=== PATIENT | female | born 1965 | race African-American/Black ===

== ENCOUNTER 2021-05-08 16:12 | Emergency (ER) | payer BC, OTHER ==
[2021-05-08 16:32] VITALS: BP 129/85; PULSE 100; TEMP 98.2; BMI 29.4
[2021-05-08] MEDS ORDERED: ASPIRIN 81 MG CHEWABLE TABLETS PO ONE (17:31)
[2021-05-08] MEDS ORDERED: ASPIRIN 81 MG CHEWABLE TABLETS ONE (18:10)
[2021-05-08 19:27] LABS: EOS % 1.8 % (0-4.5); HEMATOCRIT 40.6 % (32.4-45.2); HEMOGLOBIN 14.2 GM/dL (10.7-15.3); LYMPH % 35.9 % (8-40); MCH 28.4 pg (25.7-33.7); MEAN PLT VOLUME 8.5 fl (7.5-11.1); NEUT % 55.3 % (42.8-82.8); PLATELET COUNT 352 10^3/uL (134-434); RBC 5.01 M/mm3 (3.60-5.2); RDW 13.1 % (11.6-15.6); WHITE BLOOD COUNT 9.8 K/mm3 (4.0-10.0)
[2021-05-08 19:47] LABS: CHLORIDE 107 mmol/L (98-107); SODIUM 138 mmol/L (136-145)
[2021-05-08 19:51] LABS: ALBUMIN 3.5 g/dl (3.4-5.0); ANION GAP 8 MMOL/L (8-16); BLOOD UREA NITROGEN 12.7 mg/dL (7-18); CALCIUM 9.3 mg/dL (8.5-10.1); CO2 23 mmol/L (21-32); GLUCOSE,RANDOM 89 mg/dL (74-106)
[2021-05-08 19:54] LABS: SGOT/AST 21 U/L (15-37); SGPT/ALT 27 U/L (13-61)
[2021-05-08 19:55] LABS: CREATININE 0.6 mg/dL (0.55-1.3)
[2021-05-08 19:56] LABS: BILIRUBIN,TOTAL 0.2 mg/dL (0.2-1); TOT PROT 7.3 g/dl (6.4-8.2)
[2021-05-08 19:57] LABS: ALK PHOS 95 U/L (45-117)
== END 2021-05-09 00:57 | disposition left against medical advice (07) ==
LOC: JER 16:12
DX: R07.9 Chest pain, unspecified (principal); R06.02 Shortness of breath
CPT/HCPCS: 36415; 71046-TC-FY; 71275-TC; 80053; 82550; 84443; 84484; 85025; 85379; 93005; 93010; 93971-TC; 99285-25; C9803; U0003; U0005